=== PATIENT | male | born 1995 | race African-American/Black ===

== ENCOUNTER 2017-09-24 05:18 | Emergency (ER) | payer OTHER, MEDICAID ==
[~2017-09-24] VITALS: Ht 170.2 cm; Wt 59.0 kg
[2017-09-24 07:30] VITALS: BP 110/74
== END 2017-09-24 07:35 | disposition home or self-care (01) ==
LOC: ER 05:18
DX: Z00.00 Encounter for general adult medical examination without abnormal findings (principal); F20.9 Schizophrenia, unspecified
CPT/HCPCS: 99283